=== PATIENT | male | born 1965 | race American Indian/Alaskan Native ===

== ENCOUNTER 2017-04-11 08:36 | Emergency (ER) | payer OTHER ==
[2017-04-11 09:39] VITALS: BP 149/95
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
== END 2017-04-11 11:40 | disposition home or self-care (01) ==
LOC: ED 08:36
DX: M54.17 Radiculopathy, lumbosacral region (principal); M23.92 Unspecified internal derangement of left knee; M25.562 Pain in left knee; I10 Essential (primary) hypertension; J45.909 Unspecified asthma, uncomplicated
CPT/HCPCS: 99282

== ENCOUNTER 2019-03-24 05:18 | Emergency (ER) | payer OTHER ==
[2019-03-24 06:04] LABS: Hematocrit 51.6 % (35.5-45.6); Hemoglobin 17.4 gm/dl (11.8-15.2); Mean Corpuscular HGB Conc 34 % (32-34); Mean Corpuscular Volume 96 fl (84-94); Platelet Count 253 K/mm3 (140-440); Red Blood Count 5.38 M/mm3 (3.65-5.03); Red Cell Distribution Width 15.8 % (13.2-15.2)
[2019-03-24 06:14] LABS: INR 1.14 (0.87-1.13)
[2019-03-24 06:15] LABS: Partial Thromboplastin Time 26.6 Sec. (24.2-36.6)
[2019-03-24 07:11] VITALS: BP 168/95
== END 2019-03-24 07:15 | disposition left against medical advice (07) ==
LOC: ED 05:18
DX: K91.840 Postprocedural hemorrhage of a digestive system organ or structure following a digestive system procedure (principal); Z53.21 Procedure and treatment not carried out due to patient leaving prior to being seen by health care provider
CPT/HCPCS: 36415; 85027; 85610; 85730

== ENCOUNTER 2020-06-08 14:05 | Observation (INO) | payer OTHER ==
[2020-06-08] MEDS ORDERED: ASPIRIN 325 MG TAB PO ONE (14:18)
--- NOTE | 2020-06-08 14:44 | XRay Report ---
CHEST PA AND LATERAL VIEWS INDICATION: Chest Pain. COMPARISON: None. FINDINGS: Support devices: None. Heart: Within normal limits. Lungs/Pleura: No acute pulmonary or pleural findings. IMPRESSION: 1. No acute findings. Signer Name: Bossman Hewitt MD Signed: 06/08/2020 2:40 PM Workstation Name: [id number]
--- NOTE | 2020-06-08 14:50 | Event Note ---
ED Screening Note Date of service: 06/08/20 Time: 14:49 ED Screening Note: c/o left sided chest pain, SOB, and bilateral lower leg swelling x today chest pain has been intermittent for 1 week denies hx of CHF This initial assessment/diagnostic orders/clinical plan/treatment(s) is/are subject to change based on patients health status, clinical progression and re- assessment by fellow clinical providers in the ED. Further treatment and workup at subsequent clinical providers discretion. Patient/guardian urged not to elope from the ED as their condition may be serious if not clinically assessed and managed. Initial orders include: labs CXR ekg
[2020-06-08 16:57] LABS: Basophils # (Auto) 0.1 K/mm3 (0.0-0.1); Basophils % (Auto) 1.8 % (0.0-1.8); Eosinophils # (Auto) 0.1 K/mm3 (0.0-0.4); Eosinophils % (Auto) 1.6 % (0.0-4.3); Hematocrit 52.1 % (35.5-45.6); Hemoglobin 18.1 gm/dl (11.8-15.2); Lymphocytes % (Auto) 28.7 % (13.4-35.0); Mean Corpuscular HGB Conc 35 % (32-34); Mean Corpuscular Volume 90 fl (84-94); Monocytes # (Auto) 0.9 K/mm3 (0.0-0.8); Platelet Count 226 K/mm3 (140-440); Red Blood Count 5.77 M/mm3 (3.65-5.03)
[2020-06-08 17:33] LABS: Alanine Aminotransferase 49 units/L (7-56); BUN/Creatinine Ratio 14; Bilirubin,Direct < 0.2 mg/dL (0-0.2); Blood Urea Nitrogen 21 mg/dL (9-20); Hemolysis Index 94
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
[2020-06-08] MEDS ORDERED: ONDANSETRON 4 MG/2 ML INJ IV PRN (23:32)
[2020-06-08] MEDS ORDERED: ACETAMINOPHEN 325 MG TAB PO PRN (23:32)
[2020-06-08] MEDS ORDERED: NITROGLYCERIN 0.4 MG TAB SUBL SL PRN (23:33)
[2020-06-09] MEDS: HEPARIN 5,000 UNIT/1 ML VIAL SUB-Q SCH ×4 (00:06→21:09)
[2020-06-09] MEDS: MORPHINE 2 MG/1 ML INJ IV PRN ×2 (00:10→14:25)
[2020-06-09 00:59] LABS: Creatine Kinase MB 14.4 ng/mL (0.0-4.0)
[2020-06-09] MEDS: NITROGLYCERIN 2% OINT 1 GM TP SCH ×4 (06:34→18:29)
[2020-06-09 06:43] LABS: Creatine Kinase MB 12.5 ng/mL (0.0-4.0)
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
[2020-06-09] MEDS ORDERED: SODIUM POLYSTYRENE 15 GM/60 ML ORAL LIQD PO SCH (08:00)
--- NOTE | 2020-06-09 08:36 | Progress Note ---
Assessment and Plan Assessment and plan: Chest pain -Chest x-ray is normal, serial troponins were negative -Lexiscan stress test and echo pending -Patient has elevated d-dimer and I ordered a perfusion scan, if patient's creatinine come back to normal I may change to CTA rule out PE JOY -IV fluids, nephrology consult -BMP from this morning pending Hyperkalemia -We will check BMP from this morning Disposition -Per clinical course History Interval history: Patient was seen and evaluated this morning Patient did not have chest pain, or SOB Hospitalist Physical - Physical exam Narrative exam: Not in cardiopulmonary distress. The patient appeared well nourished and normally developed. Vital signs as documented. Head exam is unremarkable. No scleral icterus . Neck is without jugular venous distension, thyromegaly, or carotid bruits. Lungs are clear to auscultation. Cardiac exam reveals regular rate and Rhythm. Abdominal exam reveals normal bowel sounds, nontender, no organomegaly. Extremities are nonedematous and both femoral and pedal pulses are normal. 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 No focal weakness. - Constitutional Vitals: Temp Pulse Resp BP Pulse Ox 98.0 F 80 18 142/85 93 06/09/20 05:10 06/09/20 06:34 06/09/20 05:10 06/09/20 06:34 06/09/20 05:10 General appearance: Present: no acute distress HEART Score - HEART Score Risk factors: 1-2 risk factors Troponin: Troponin T < 0.010 ng/mL (0.00-0.029) 06/09/20 05:59 Troponin: < normal limit - Critical Actions Critical Actions: 0-3 pts:0.9-1.7%risk of adverse cardiac event.Candidate for discharge Results - Labs CBC & Chem 7: 06/08/20 16:31 06/08/20 16:31 Labs: Laboratory Last Values WBC 6.8 K/mm3 (4.5-11.0) 06/08/20 16:31 RBC 5.77 M/mm3 (3.65-5.03) H 06/08/20 16:31 Hgb 18.1 gm/dl (11.8-15.2) H 06/08/20 16:31 Hct 52.1 % (35.5-45.6) H 09/09/20 16:31 MCV 90 fl (84-94) 06/08/20 16:31 MCH 31 pg (28-32) 06/08/20 16:31 MCHC 35 % (32-34) H 06/08/20 16:31 RDW 17.0 % (13.2-15.2) H 06/08/20 16:31 Plt Count 226 K/mm3 (140-440) 06/08/20 16:31 Lymph % (Auto) 28.7 % (13.4-35.0) 06/08/20 16:31 Dickinson % (Auto) 13.0 % (0.0-7.3) H 06/08/20 16:31 Eos % (Auto) 1.6 % (0.0-4.3) 06/08/20 16:31 Baso % (Auto) 1.8 % (0.0-1.8) 06/08/20 16:31 Lymph # 2.0 K/mm3 (1.2-5.4) 06/08/20 16:31 Dickinson # 0.9 K/mm3 (0.0-0.8) H 06/08/20 16:31 Eos # 0.1 K/mm3 (0.0-0.4) 06/08/20 16:31 Baso # 0.1 K/mm3 (0.0-0.1) 06/08/20 16:31 Seg Neutrophils % 54.9 % (40.0-70.0) 06/08/20 16:31 Seg Neutrophils # 3.8 K/mm3 (1.8-7.7) 06/08/20 16:31 D-Dimer 245.98 ng/mlDDU (0-234) H 06/08/20 21:27 Sodium 133 mmol/L (137-145) L 06/08/20 16:31 Potassium 5.3 mmol/L (3.6-5.0) H 06/08/20 16:31 Chloride 95.6 mmol/L (98-107) L 06/08/20 16:31 Carbon Dioxide 22 mmol/L (22-30) 06/08/20 16:31 Anion Gap 21 mmol/L 06/08/20 16:31 BUN 21 mg/dL (9-20) H 06/08/20 16:31 Creatinine 1.5 mg/dL (0.8-1.3) H 06/08/20 16:31 Estimated GFR 59 ml/min 06/08/20 16:31 BUN/Creatinine Ratio 14 % 06/08/20 16:31 Glucose 84 mg/dL (75-100) 06/08/20 16:31 Calcium 10.0 mg/dL (8.4-10.2) 06/08/20 16:31 Total Bilirubin 0.60 mg/dL (0.1-1.2) 06/08/20 16:31 Direct Bilirubin < 0.2 mg/dL (0-0.2) 06/08/20 16:31 Indirect Bilirubin 0.4 mg/dL 06/08/20 16:31 AST 76 units/L (5-40) H 06/08/20 16:31 ALT 49 units/L (7-56) 06/08/20 16:31 Alkaline Phosphatase 39 units/L (35-129) 06/08/20 16:31 Total Creatine Kinase 1743 units/L (55-170) H 06/09/20 05:59 CK-MB (CK-2) 12.5 ng/mL (0.0-4.0) H 06/09/20 05:59 CK-MB (CK-2) Rel Index 0.7 (0-4) 06/09/20 05:59 Troponin T < 0.010 ng/mL (0.00-0.029) 06/09/20 05:59 NT-Pro-B Natriuret Pep 39.35 pg/mL (0-900) 06/08/20 20:36 Total Protein 7.2 g/dL (6.3-8.2) 06/08/20 16:31 Albumin 4.0 g/dL (3.9-5) 06/08/20 16:31 Albumin/Globulin Ratio 1.3 % 06/08/20 16:31 Frazier/IV: Voiding Method Toilet IV Catheter Type [right Peripheral IV forearm] Active Medications - Current Medications Current Medications: Generic Name Dose Route Start Last Admin Trade Name Freq PRN Reason Stop Dose Admin Acetaminophen 650 mg 06/08/20 23:32 Tylenol PO Q4H PRN Headache Aspirin 325 mg 06/09/20 10:00 Aspirin PO QDAY ARTHUR Heparin Sodium (Porcine) 5,000 unit 06/08/20 23:30 06/09/20 06:33 Heparin SUB-Q 5,000 unit Q8HR ARTHUR Administration Morphine Sulfate 2 mg 06/08/20 23:31 06/09/20 00:10 Morphine IV 2 mg Q4H PRN Administration Pain, Moderate (4-6) Nitroglycerin 0.5 inch 06/09/20 06:00 06/09/20 06:34 Nitro-Bid 2% TP 0.5 inch QIDNTG ARTHUR Administration Protocol Nitroglycerin 0.4 mg 06/08/20 23:33 Nitrostat SL .Q5MIN PRN Chest Pain Ondansetron HCl 4 mg 06/08/20 23:32 Zofran IV Q8H PRN Nausea And Vomiting Sodium Polystyrene Sulfonate 30 gm 06/09/20 08:00 Kionex PO 06/09/20 11:00 ONCE ARTHUR
[2020-06-09] MEDS ORDERED: REGADENOSON 0.4 MG/5 ML INJ IV ONE ×2 (08:52→08:59)
[2020-06-09] MEDS ORDERED: ASPIRIN 325 MG TAB PO SCH (10:00)
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
--- NOTE | 2020-06-09 14:06 | Treadmill Report ---
THALLIUM STRESS TEST LEFT VENTRICLE: Left ventricle is at the upper limits of normal in size. Perfusion study demonstrates mild diaphragmatic attenuation artifact, otherwise homogeneous uptake of the tracer in all segments, no significant defects identified. Gated analysis is suboptimal. CONCLUSION: No demonstrable ischemia on thallium perfusion imaging. Recommend clinical correlation and echocardiographic reassessment of left ventricular size and systolic function. JOB# [id number] CA/NTS
[2020-06-09] MEDS: SODIUM CHLORIDE 0.45% 1000 ML 1,000 ML with SODIUM BICARBONATE 75 MEQ IV SCH (14:14)
[2020-06-09 15:38] LABS: BUN/Creatinine Ratio 14; Blood Urea Nitrogen 18 mg/dL (9-20); Calcium 9.5 mg/dL (8.4-10.2); Hemolysis Index 15
[2020-06-09 23:23] LABS: Creatinine,Urine 158.9 mg/dL (0.1-20.0)
[2020-06-09 23:31] LABS: Bilirubin,Urine NEG (Negative); Blood,Urine MOD (Negative); Color,Urine Yellow (Yellow); Protein,Urine <15 mg/dL mg/dL (Negative); Urobilinogen,Urine < 2.0 mg/dL (<2.0)
[2020-06-09 23:58] LABS: Creatinine,Urine 164.2 mg/dL (0.1-20.0); Protein/Creatinine Ratio,Urine 0.08
[2020-06-10] MEDS: SODIUM CHLORIDE 0.45% 1000 ML 1,000 ML with SODIUM BICARBONATE 75 MEQ IV SCH (00:49)
[2020-06-10 04:43] VITALS: BP 130/87
[2020-06-10] MEDS: NITROGLYCERIN 2% OINT 1 GM TP SCH (05:50)
[2020-06-10] MEDS: HEPARIN 5,000 UNIT/1 ML VIAL SUB-Q SCH (05:51)
--- NOTE | 2020-06-10 07:06 | Ultrasound Report ---
ULTRASOUND RENAL INDICATION: renal failure. renal failure COMPARISON: No relevant prior imaging study available. FINDINGS: RIGHT KIDNEY: Size: 12.7 cm. Echogenicity: Normal. Cortical thickness: 1.7 cm. Hydronephrosis: None. Cyst or mass: None. Stones: None. LEFT KIDNEY: Size: 11.1 cm. Echogenicity: Normal. Cortical thickness: 2.5 cm. Hydronephrosis: None. Cyst or mass: None. Stones: None. Urinary Bladder: No significant abnormality. Free Fluid: None. Additional Findings: None. IMPRESSION 1. No acute sonographic abnormality of the kidneys. Signer Name: Remington Reed MD Signed: 06/10/2020 7:01 AM Workstation Name: [id number]
[2020-06-10 08:08] LABS: Basophils # (Auto) 0.1 K/mm3 (0.0-0.1); Basophils % (Auto) 1.4 % (0.0-1.8); Eosinophils # (Auto) 0.1 K/mm3 (0.0-0.4); Eosinophils % (Auto) 1.9 % (0.0-4.3); Hematocrit 52.1 % (35.5-45.6); Hemoglobin 17.6 gm/dl (11.8-15.2); Lymphocytes # (Auto) 2.2 K/mm3 (1.2-5.4); Lymphocytes % (Auto) 38.1 % (13.4-35.0); Mean Corpuscular HGB Conc 34 % (32-34); Mean Corpuscular Volume 93 fl (84-94); Monocytes # (Auto) 0.7 K/mm3 (0.0-0.8); Monocytes % (Auto) 12.9 % (0.0-7.3); Platelet Count 223 K/mm3 (140-440); Red Blood Count 5.63 M/mm3 (3.65-5.03); Red Cell Distribution Width 17.3 % (13.2-15.2)
--- NOTE | 2020-06-10 09:34 | Discharge Summary ---
Providers - Providers Date of Admission: 06/08/20 22:10 Date of discharge: 06/10/20 Attending physician: JANE RANDOLPH MD 06/09/20 07:10 Consult to Physician [CONS] Routine Comment: Consulting Provider: GEN FUENTES Physician Instructions: Reason For Exam: JOY Primary care physician: [employer] Hospitalization Reason for admission: chest pain Condition: Fair Pertinent studies: Cardiac stress test was negative Hospital course: 55 year old male presenting with intermittent substernal sharp and pressure like chest pain going on for one and half week and associated with shortness of breath and diaphoresis. There is history of ankle edema but no history of couigh, fever, dizziness, nausea or vomting. Patient was admitted to the floor and serial troponins were negative, stress test was done and negative for acute ischemia. Patient has slightly elevated d- dimer and patient has history of PE and patient is already on Xarelto and advised to continue with that. Patient's chest pain resolved. Patient has JOY which resolved. Potassium level was normal at the time of discharge. Patient was hemodynamically stable and discharged home. Appropriate medications were reconciled at the time of discharge. Patient's questions and concerns were addressed at the bedside. Disposition: DC-01 TO HOME OR SELFCARE Time spent for discharge: 32 minutes - Discharge Diagnoses (1) JOY (acute kidney injury) Status: Acute (2) Chest pain Status: Acute (3) Hyperkalemia Status: Acute Core Measure Documentation - Palliative Care Palliative Care/ Comfort Measures: Not Applicable - Core Measures Any of the following diagnoses?: none Exam - Physical Exam Narrative exam: Not in cardiopulmonary distress. The patient appeared well nourished and normally developed. Vital signs as documented. Head exam is unremarkable. No scleral icterus . Neck is without jugular venous distension, thyromegaly, or carotid bruits. Lungs are clear to auscultation. Cardiac exam reveals regular rate and Rhythm. Abdominal exam reveals normal bowel sounds, nontender, no organomegaly. Extremities are nonedematous and both femoral and pedal pulses are normal. 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 No focal weakness. - Constitutional Vitals: Temp Pulse Resp BP Pulse Ox 97.3 F L 87 20 130/87 93 06/10/20 03:52 06/10/20 04:00 06/10/20 03:52 06/10/20 03:52 06/10/20 04:00 Plan Activity: no restrictions Weight Bearing Status: Full Weight Bearing Diet: regular Follow up with: PRIMARY CARE, [Primary Care Provider] - 3-5 Days
--- NOTE | 2020-06-10 10:48 | Progress Note ---
Assessment and Plan acute renal failure, likely prerenal azotemia, also noted to have mildly elevated CK Hyperkalemia chest pain HTN Cr is trending down will be followed in my office upon discharge renally dose meds strict I&O daily weight Avoid nephrotoxins Rito Ford MD please call me if you have any questions [phone] Subjective Date of service: 06/10/20 Principal diagnosis: JOY Interval history: mild chest pain early AM, now resolved Objective - Vital Signs Vital signs: Vital Signs - 12hr 06/09/20 06/10/20 06/10/20 23:34 00:14 00:30 Temperature 97.5 F L Pulse Rate 87 82 Respiratory 20 Rate Blood Pressure 128/79 O2 Sat by Pulse 93 Oximetry 06/10/20 06/10/20 03:52 04:00 Temperature 97.3 F L Pulse Rate 87 Respiratory 20 Rate Blood Pressure 130/87 O2 Sat by Pulse 93 Oximetry - General Appearance General appearance: well-developed, well-nourished EENT: ATNC, PERRL Neck: no JVD, no thyromegaly Respiratory: Present: Clear to Ascultation. Absent: Rales, Ronchi Cardiology: regular, S1S2 Gastrointestinal: normoactive bowel sounds Integumentary: no rash Neurologic: no focal deficit, no asterixis, alert and oriented x3 Musculoskeletal: other (no edema in BLE) Psychiatric: mood/affect appropriate, cooperative - Lab 06/10/20 07:02 06/09/20 14:53 Most recent lab results Calcium 9.5 mg/dL (8.4-10.2) 06/09/20 14:53 Phosphorus 2.80 mg/dL (2.5-4.5) 06/10/20 07:02 Urine Creatinine 158.9 mg/dL (0.1-20.0) H 06/09/20 Unknown Urine Creatinine 164.2 mg/dL (0.1-20.0) H 06/09/20 Unknown Urine Sodium 81 mmol/L 06/09/20 Unknown Urine Total Protein 13 mg/dL (5-11.8) H 06/09/20 Unknown Medications & Allergies - Medications Allergies/Adverse Reactions: Allergies No Known Allergies Allergy (Verified 04/11/17 09:33) Home Medications: Home Medications Medication Instructions Recorded Confirmed Last Taken Type Rivaroxaban [Xarelto] 15 mg PO BIDDIAB #40 tablet 11/19/15 06/08/20 Unknown Rx traMADoL [Ultram 50 MG tab] 50 mg PO Q4HR PRN #20 tablet 04/11/17 06/08/20 Unknown Rx AtorvaSTATin [Lipitor] 20 mg PO QHS 06/08/20 06/08/20 Unknown History NIFEdipine [Nifedipine ER] 60 mg PO QDAY 06/08/20 06/08/20 Unknown History Pantoprazole [Protonix TAB] 40 mg PO QDAY 06/08/20 06/08/20 Unknown History Valsartan [Diovan] 160 mg PO QDAY 06/08/20 06/08/20 Unknown History hydroCHLOROthiazide [HCTZ] 25 mg PO QDAY 06/08/20 06/08/20 Unknown History
== END 2020-06-10 10:42 | disposition home or self-care (01) ==
LOC: ED 14:05 → 4A 22:10
PROVIDERS: ADMIT Internal Medicine; ATTEND Internal Medicine
DX: R07.89 Other chest pain (principal); N17.9 Acute kidney failure, unspecified; E87.5 Hyperkalemia; I10 Essential (primary) hypertension; J45.909 Unspecified asthma, uncomplicated; Z86.718 Personal history of other venous thrombosis and embolism; Z86.711 Personal history of pulmonary embolism; Z79.01 Long term (current) use of anticoagulants; Z79.899 Other long term (current) drug therapy
CPT/HCPCS: 36415; 71046; 76770; 78452; 80048; 80076; 81001; 82550; 82553; 82570; 83615; 83880; 84100; 84156; 84300; 84484; 84520; 85025; 85379; 87641; 89050; 93005; 93017; 93306; 96361; 96372; 96374; 96376; 99285; A9502; G0378; J1644; J2270; J7030; J2785

== ENCOUNTER 2020-08-22 10:43 | Emergency (ER) | payer OTHER ==
[2020-08-22 10:50] VITALS: BP 201/90
[2020-08-22] MEDS ORDERED: oxyCODONE /ACETAMINOPHEN 5-325MG TAB PO PRN (10:54)
[2020-08-22] MEDS ORDERED: MORPHINE 4 MG/1 ML INJ IV ONE (10:55)
[2020-08-22] MEDS ORDERED: ONDANSETRON 4 MG/2 ML INJ IV ONE (10:55)
--- NOTE | 2020-08-22 10:57 | Event Note ---
ED Screening Note Date of service: 08/22/20 Time: 10:56 ED Screening Note: 55-year-old male past medical history of testicular torsion presents the emergency department chief complaint of an acute onset of left-sided scrotal pain that started yesterday. Patient reports this feels similar to previous testicular torsion. This initial assessment/diagnostic orders/clinical plan/treatment(s) is/are subject to change based on patients health status, clinical progression and re- assessment by fellow clinical providers in the ED. Further treatment and workup at subsequent clinical providers discretion. Patient/guardian urged not to elope from the ED as their condition may be serious if not clinically assessed and managed. Initial orders include: Stat testicular ultrasound, CBC, BMP, urinalysis, IV, morphine, Zofran
--- NOTE | 2020-08-22 11:41 | Ultrasound Report ---
SCROTAL ULTRASOUND WITH DOPPLER HISTORY: left testicular pain, hx of torsion COMPARISON: None. TECHNIQUE: Grayscale, color and spectral Doppler images were obtained of the scrotum. FINDINGS: RIGHT: Right testicle: No significant abnormality. No mass. Right testicular size: 2.9 x 1.8 x 2.7 cm. Right epididymis: The right epididymis appears enlarged and heterogeneous with increased blood flow o n color Doppler interrogation. 2 mm epididymal head cyst is noted. LEFT: Left testicle: No significant abnormality. No mass. Left testicular size: 3.5 x 1.4 x 2.6 cm. Left epididymis: The left epididymis appears enlarged and heterogeneous with increased blood flow on color Doppler interrogation. Additional findings: Spectral Doppler waveforms demonstrate arterial flow to both testicles. No signi ficant varicocele or hydrocele is identified. IMPRESSION: Both epididymides appear enlarged, heterogeneous and hyperemic on color Doppler imaging. This could i ndicate bilateral epididymitis. Please correlate with the patient's clinical presentation. Tiny right epididymal head cyst. No evidence for torsion. Signer Name: Robin Hawkins Jr, MD Signed: 08/22/2020 11:37 AM Workstation Name: [id number]
[2020-08-22 12:36] LABS: Basophils % (Auto) 0.6 % (0.0-1.8); Eosinophils % (Auto) 0.2 % (0.0-4.3); Hematocrit 55.6 % (35.5-45.6); Lymphocytes # (Auto) 1.8 K/mm3 (1.2-5.4); Lymphocytes % (Auto) 25.8 % (13.4-35.0); Mean Corpuscular HGB Conc 34 % (32-34); Mean Corpuscular Volume 90 fl (84-94); Monocytes # (Auto) 0.4 K/mm3 (0.0-0.8); Platelet Count 236 K/mm3 (140-440); Red Blood Count 6.19 M/mm3 (3.65-5.03); Red Cell Distribution Width 16.4 % (13.2-15.2)
[2020-08-22] MEDS ORDERED: IBUPROFEN 600 MG TAB PO ONE (12:46)
[2020-08-22 13:55] LABS: BUN/Creatinine Ratio 11; Blood Urea Nitrogen 16 mg/dL (9-20); Calcium 10.1 mg/dL (8.4-10.2); Hemolysis Index 15
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
[2020-08-22 15:09] LABS: Bilirubin,Urine NEG (Negative); Blood,Urine MOD (Negative); Color,Urine Yellow (Yellow); Mucus,Urine FEW /HPF; Protein,Urine <15 mg/dL mg/dL (Negative); Urobilinogen,Urine < 2.0 mg/dL (<2.0)
== END 2020-08-22 16:07 | disposition home or self-care (01) ==
LOC: ED 10:43
DX: N45.1 Epididymitis (principal); I11.0 Hypertensive heart disease with heart failure; I50.9 Heart failure, unspecified; J45.909 Unspecified asthma, uncomplicated
CPT/HCPCS: 36415; 80048; 81001; 85025; 93975; 96374; 96375; 99284; J2270; J2405